=== PATIENT | female | born 1995 | race Caucasian/White ===

== ENCOUNTER 2016-08-27 15:20 | Emergency (ER) | payer OTHER ==
[2016-08-27] MEDS ORDERED: Lidocaine 1% 20 ML MDV ONE (15:41)
[2016-08-27] MEDS ORDERED: cefTRIAXone\\ROCEPHIN 1 GM VIAL ONE (15:41)
== END 2016-08-27 16:06 | disposition home or self-care (01) ==
LOC: NAV ERS 15:20
DX: H60.91 Unspecified otitis externa, right ear (principal); F31.9 Bipolar disorder, unspecified; F90.9 Attention-deficit hyperactivity disorder, unspecified type
CPT/HCPCS: 96372; J0696; J2001

== ENCOUNTER 2017-05-28 22:40 | Emergency (ER) | payer OTHER, SELFPAY | END 2017-05-28 23:13 | disposition home or self-care (01) | LOC: NAV ERS 22:40 | DX: L03.115 Cellulitis of right lower limb (principal); F31.9 Bipolar disorder, unspecified; F90.9 Attention-deficit hyperactivity disorder, unspecified type | CPT/HCPCS: 99282 ==